=== PATIENT | male | born 1935 | race Caucasian/White ===

== ENCOUNTER 2017-05-07 11:10 | Inpatient (IN) | payer MEDICARE ==
[2017-05-07] VITALS (9 sets, daily range): BP systolic 134–170; BP diastolic 65–100
[~2017-05-07] VITALS: Ht 180 cm; Wt 93.1 kg
--- NOTE | ~2017-05-07 | CON ---
[place], [place] REPORT OF CONSULTATION NAME: MARLEY AGUILERA UNIT #: [id number] ROOM: 512 DOCTOR: ZULEYKA NIETO MD BIRTHDATE: [birth year] DOS: 05/07/2017 REASON FOR CONSULTATION: Atrial fibrillation. HISTORY OF PRESENT ILLNESS: The patient is an 81-year-old man who is typically followed by the [facility] [place], [place]. His primary media liaison officer there is Dr. Arteaga. He tells me that he has had several stents placed within his heart around [address] Tim Diaz. The patient states that he was told many years ago by Dr. Toussaint in [place] that he had an irregular heartbeat. This did not recur and the patient has not been treated for it in at least 20-30 years. Over the last 3 days, he has developed worsening dyspnea. Symptoms were intermittent, but became much more prominent this morning. His dyspnea was worsened by exertion. He denied any lightheadedness or syncope and denied any chest pain or palpitations, but felt weak and therefore came to the Emergency Room where he was found to be in atrial fibrillation with a controlled ventricular response. He was admitted for further assessment and management. PAST MEDICAL HISTORY: Includes: 1. Coronary artery disease. The patient states that he had at least 3 stents placed in his heart around 2004. 2. History of stroke. The patient states that he had a total of 3 strokes and/or transient ischemic attacks around the year 1999. He does not recall a cause being found. He has been treated with long-term aspirin and Plavix. 3. Gout. 4. Essential hypertension. 5. Gastroesophageal reflux disease. 6. Hyperlipidemia. 7. Type 2 diabetes mellitus. 8. History of left hip surgery. 9. Status post cataract resection. 10. Atrial fibrillation documented on 05/07/2017. MEDICATIONS: Prior to admission included allopurinol 300 mg daily, amlodipine 2.5 mg daily, aspirin 81 mg daily, clopidogrel 75 mg daily, folic acid 1 mg daily, glipizide 5 mg at bedtime, isosorbide mononitrate 60 mg daily, lisinopril with hydrochlorothiazide dosage not specified twice a day, metformin 1000 mg b.i.d., metoprolol 50 mg b.i.d., omeprazole 20 mg daily and paroxetine 20 mg at bedtime. ALLERGIES: The patient lists allergies to IVP DYE which causes a low blood pressure, DIPHENHYDRAMINE, which caused urinary retention; ALPRAZOLAM, LORAZEPAM, and MORPHINE. REVIEW OF SYSTEMS: The patient denies diplopia or loss of vision. He denies lightheadedness or syncope. Denies orthopnea or PND. He denies fevers, chills, sweats or recent weight change. He has had increased dyspnea and fatigue for the last few days. He denies orthopnea or PND. He denies nausea or vomiting. He denies hemoptysis or hematemesis. He has had a mild cough. He denies any [place], [place] REPORT OF CONSULTATION NAME: MARLEY AGUILERA UNIT #: [id number] ROOM: [facility] DOCTOR: ZULEYKA NIETO MD BIRTHDATE: [birth year] change in bowel or bladder habits and denies bleeding in his urine or stools. He denies any skin rashes. He denies heat or cold intolerance. He denies polydipsia or polyuria. He does have mild chronic swelling in his legs, but denies any cramping in his legs. The remainder of the review of systems is negative except as noted above. FAMILY HISTORY: The patient's father at age 54 from stomach cancer. His mother at age 81 from diabetes complications. SOCIAL HISTORY: The patient is a former smoker, but has not smoked in years. He rarely consumes alcohol and does not use illicit drugs. PHYSICAL EXAMINATION: GENERAL: The patient is a well-nourished white male who is awake, alert and oriented. VITAL SIGNS: Pulse is 72 and irregularly irregular. Blood pressure is 170/88. He is afebrile. He weighs 93.1 kg and has a body mass index of 28.7. HEENT: Normocephalic, atraumatic. Extraocular muscles are intact. Sclerae are clear. Pupils are round and reactive to light. Oral mucosa is moist. Tongue is midline. NECK: Supple. He has no jugular distention. Carotids are full. He has no bruits. He has no neck or supraclavicular masses. LUNGS: Respirations are unlabored. His chest is clear to auscultation and percussion. He has no presacral edema or chest wall tenderness. HEART: Has a an irregularly irregular rhythm. He has no murmurs, rubs or gallops. The PMI is not displaced. He has no precordial heave, lift or thrill. ABDOMEN: Soft and normoactive without masses, organomegaly or bruits. EXTREMITIES: Showed trace edema bilaterally. Peripheral pulses are palpable in the feet bilaterally. LABORATORY DATA: I reviewed his electrocardiogram, which shows atrial fibrillation with a slow ventricular response. He does have a right bundle branch block and left anterior fascicular block. No acute ST or T-wave changes are seen. Hemoglobin is 10.3, white count 8400, platelet count 203,000. INR is 1.0. Sodium is 144, potassium 4.2, BUN 21, creatinine 1.44. Lactic acid level on admission was 3.7. Troponin was normal. IMPRESSION: 1. Newly-documented atrial fibrillation. 2. History of coronary artery disease status post stents in the distant past. Records not available. 3. Remote history of stroke. 4. [id number] score 6 consistent with high risk for stroke without oral anticoagulation (yearly stroke risk approaches 10%). 5. History of hyperlipidemia. 6. History of type 2 diabetes mellitus. 7. History gastroesophageal reflux disease. [place], [place] REPORT OF CONSULTATION [id number] #: [id number] ROOM: 512 DOCTOR: ZULEYKA NIETO MD BIRTHDATE: [birth year] PLAN: The patient and I discussed the complications of atrial fibrillation, especially that of stroke. He has been placed on a heparin infusion, but we do need to decide on long-term anticoagulation strategies. The patient tells me that he does not have any drug coverage and is very low on funds. Warfarin would probably be the most economic choice for him and it has already been started at a dose of 5 mg per day. For now, his heart rate is controlled, so I do not think that we need to change his cardiac medications. We may need to give him a diuretic if he looks like he is developing heart failure. For now, we will monitor him clinically. We will check an echocardiogram for evidence of structural heart disease and a TSH for evidence of thyroid disease. I think we will follow strategy of rate control and anticoagulation for the foreseeable future. [facility] and I thank the hospitalist physicians for asking our advice regarding this patient's care. ZULEYKA NIETO MD CM:CONSTR:REPORT OF CONSULTATION 1647 05/07/17 2336 interface
--- NOTE | ~2017-05-07 | PR ---
[place], [place] PROGRESS NOTE NAME[id number] UNIT #: [id number] ROOM: 510 DOCTOR: ZULEYKA NIETO MD BIRTHDATE: [birth year] DOS: 05/08/2017 SUBJECTIVE: The patient was seen at his bedside today, 05/08/2017 for followup of his newly documented atrial fibrillation. The patient did have a rough night. There was considerable trouble with IV access and the patient apparently was stuck on numerous occasions in both arms. An antecubital vein on his right arm began oozing during the night and persisted in the oozing for several hours. At about that same time, he began to complain of anxiety, restlessness and dyspnea. There is no mention of any chest pain. Repeat cardiac biomarkers showed no elevation in troponin. He was given furosemide intravenously. Unfortunately, urine output was not measured. He was given methylprednisolone, diphenhydramine, hydroxyzine along with his usual dose of paroxetine at bedtime. This morning, he seems lethargic, but is able to answer questions. He is confused, but does not appear to have any focal weakness. After several hours, the oozing from his right antecubital vein has stopped. Review of his CBC shows that his hemoglobin actually sharona, probably due to diuresis and hemoconcentration, white count is 10,500. His platelet count is stable at 202,000, essentially eliminating heparin-induced thrombocytopenia or disseminated intravascular coagulation as a cause for his bleeding. PHYSICAL EXAMINATION: VITAL SIGNS: Now, his pulse is 77 and irregularly irregular, blood pressure is 143/79. He is afebrile. NECK: Supple. He has no jugular distention. Carotids are full. LUNGS: Respirations are unlabored. His chest is clear. I heard no wheezes or rales. He had no presacral edema. HEART: Had an irregularly irregular rhythm. There were no murmurs or gallops. The PMI was not displaced. ABDOMEN: Soft and normally active. EXTREMITIES: Showed no edema in the ankles. LABORATORY DATA: Hemoglobin was 11, hematocrit 34, white count 10,500, platelet count 202,000 this morning. Sodium this morning was 142, potassium 4.0, BUN 20, creatinine 1.38, sugar was 224. Hemoglobin A1c is mildly elevated at 6.7. Magnesium is low at 1.4. Troponin levels have all been normal. TSH is normal at 1.37. IMPRESSION: 1. Newly documented atrial fibrillation with controlled ventricular response, possibly due to underlying conduction system disorder or baseline medication with beta-hair. 2. Dyspnea and anxiety last evening, etiology not clear. 3. Confusion this morning, possibly due to combination of high dose steroids, Benadryl, Vistaril, etc. No focal weakness is noted on his exam today. 4. Extended bleeding from an arm vein. Most likely this is due to the fact that he was on antiplatelet therapies prior to admission and now is on full dose heparin. Bleeding has been controlled. PLAN: Once we are certain that his bleeding has been controlled, I would resume his heparin and warfarin protocol. I would withhold all antiplatelet therapies. [place], [place] PROGRESS NOTE NAME: MARLEY AGUILERA UNIT #: [id number] ROOM: [facility] DOCTOR: ZULEYKA NIETO MD BIRTHDATE: [birth year] For now, I would also withhold any sedating medications and follow his neurologic status clinically. A consideration could be given for CAT scan of the brain, especially since he has had bleeding difficulties; however, I do not see any focal weakness to suggest to me that he has had an intracranial hemorrhage. We will continue to follow with his other physicians and I thank the hospitalist doctors for asking our advice regarding his care. ZULEYKA NIETO MD CM:PNTRANS [phone] ZULEYKA NIETO MD 05/08/17 1838 interface
--- NOTE | ~2017-05-07 | PR ---
[place], [place] PROGRESS NOTE NAME: MARLEY AG[facility]ILERA [id number] UNIT #: [id number] ROOM: 510 DOCTOR: ZULEYKA NIETO MD BIRTHDATE: [birth year] DOS: 05/09/2017 SUBJECTIVE: The patient was seen at his bedside today, 05/09/2017 for followup of his recently documented atrial fibrillation. The night before last was a bad one for him. He had a lot of problems with IV access and had persistent bleeding from one of the IV sites. There was concern that this could be related to bleeding diathesis such as heparin-induced thrombocytopenia or disseminated intravascular coagulation. However, his blood tests were unremarkable and bleeding eventually did stop. He did receive hydroxyzine, Benadryl and steroids because of an episode of dyspnea and a concern about an allergic reaction. Yesterday morning, he was confused and disoriented; however, this apparently did improve and he is back to baseline today. A CAT scan of his head showed no evidence for acute bleeding or stroke. Today, the patient is feeling better. He denies any focal weakness. He denies chest pain or palpitations and is breathing easily. PHYSICAL EXAMINATION: VITAL SIGNS: His pulse is 83 and ____, blood pressure is 147/84. He is afebrile. He weighs 93.1 kilograms. HEENT: Normocephalic, atraumatic. Extraocular muscles are intact. Sclerae are clear. Pupils are round and react to light. The oral mucosa is moist. Tongue is midline. NECK: Supple. He has no jugular distention. Carotids are full. LUNGS: Respirations are unlabored. His chest is clear to auscultation and percussion. HEART: Has an irregularly irregular rhythm without murmurs or gallops. ABDOMEN: Benign. EXTREMITIES: Showed no edema. LABORATORY DATA: Hemoglobin today is 9.5, white count is 15,100, platelet count 212,000. Sodium 141, potassium 3.9, BUN 37, creatinine 1.49. IMPRESSION: 1. Newly documented atrial fibrillation. 2. Confusion on the morning of 05/08/2017, probably due to a combination of high dose steroids, Benadryl, hydroxyzine, sleep deprivation, etc. This appears to have improved. 3. Extended bleeding from an arm vein puncture. This most likely was due to the fact that he was on antiplatelet therapies recently and was now on full dose heparin. His bleeding has been controlled. PLAN: We will continue heparin drip until his INR becomes therapeutic. Today, the INR is 1.5. Our target is between 2 and 3. Echocardiogram is still pending that will be reviewed when available. I thank the hospitalist group for asking our advice regarding his care. [place], [place] PROGRESS NOTE NAME: ALEMARLEY Barbosa UNIT #: [id number] ROOM: [facility] DOCTOR: ZULEYKA NIETO MD BIRTHDATE: [birth year] ZULEYKA NIETO MD CM:PNTRANS [id number] ZULEYKA NIETO MD 05/09/17 1321 interface
[~2017-05-07 11:10] MED LIST: ALLOPURINOL300 MG PO; AMLODIPINE BES2.5 MG PO; AMLODIPINE10 MG PO; APAP/HYDROCODON1 T46 PO; ASPIRIN FOR CHI81 MG PO; AUGMENTIN 875875 MG PO; B12,B-12,B 12500 MC1 PO; BAYER ASPIRIN C81 MG PO; CIPRO500 MG PO; CRESTOR10 MG PO; CRESTOR5 MG PO; GLIPIZIDE1 POW PO; GLIPIZIDE10 MG PO; HUMALOG100 U/ML SC; IMDUR60 MG PO; ISOSORBIDE1 POW; LISINOPRIL AND1 TAB PO; MAPAP325 MG PO; METFORMIN1000 MG PO; METFORMIN500 MG PO; PAROXETIN10 MG PO; PAROXETINE20 MG PO; PLAVIX75 MG PO; PRILOSEC40 MG PO; TOPROL XL50 MG PO; TOPROL-XL50 MG PO; ZESTORETIC 12.51 TA3 PO; ZESTRIL30 M1 PO; ZYLOPRIM300 MG PO
[2017-05-07] MEDS ORDERED: PLAVIX75 M1 PO (11:21)
[2017-05-07] MEDS ORDERED: SUNMARK OMEPRAZ20 M1 PO (11:22)
[2017-05-07] MEDS ORDERED: NATURE'S BLEND F1 MG PO (11:22)
[2017-05-07 11:59] LABS: BASO % 0.5 % (0.0-1.0); EOS # 0.1 10*3/uL (0.0-0.4); EOS % 1.4 % (1.0-4.0); HEMOGLOBIN 10.3 g/dl (14.0-18.0); LYMPH # 1.1 10*3/uL (1.3-4.4); LYMPH % 12.7 % (27.0-41.0); MEAN CELL VOLUME 95.8 fl (80.0-94.0); MEAN CORPUSCULAR HGB 30.8 pg (27.0-31.0); MEAN CORPUSCULAR HGB CONC 32.2 g/dl (33.0-37.0); MEAN PLATELET VOLUME 9.8 fl (9.6-12.3); MONO # 0.6 10*3/uL (0.1-1.0); MONO % 6.5 % (3.0-9.0); NEUT # 6.6 10*3/uL (2.3-7.9); NEUT % 78.7 % (47.0-73.0); PLATELET COUNT AUTOMATED 203 10*3/uL (130-400); RED BLOOD COUNT 3.34 10*6/uL (4.50-5.90); WHITE BLOOD COUNT 8.4 10*3/uL (4.8-10.8)
[2017-05-07 12:06] LABS: PROTHROMBIN TIME 10.3 SECONDS (9.0-12.4)
[2017-05-07 12:13] LABS: ALBUMIN 3.1 gm/dl (3.1-4.5); BILIRUBIN, TOTAL 0.5 mg/dl (0.2-1.0); CKMB 1.4 ng/ml (0.5-3.6); MAGNESIUM 1.6 mg/dL (1.5-2.1); POTASSIUM 4.2 mmol/L (3.5-5.1); TOTAL PROTEIN 6.8 gm/dL (6.4-8.2); TROPONIN I 0.016 ng/ml (<0.045)
[2017-05-07 13:54] LABS: LA>2 REFLEX 2 HR DRAW NOW
[2017-05-07 14:24] LABS: LA>2 RFLX FOLLOW UP AT 2 HRS 3.7 mmol/L (0.4-2.0)
[2017-05-07] MEDS ORDERED: GLIPIZIDE5 MG PO (14:32)
[2017-05-07] MEDS ORDERED: METOPROLOL SUCC50 M2 PO (14:33)
[2017-05-07] MEDS ORDERED: LISINOPRIL-HYDR1 TA1 PO (14:34)
[2017-05-07] MEDS ORDERED: METOPROLOL TART50 M1 PO (14:34)
[2017-05-07 14:36] LABS: CKMB 1.4 ng/ml (0.5-3.6); CPK 68 U/L (39-308)
[2017-05-07 14:39] LABS: TROPONIN I < 0.015 ng/ml (<0.045)
[2017-05-07 16:14] LABS: LA>2 REFLEX 4 HR DRAW NOW
[2017-05-07 18:18] LABS: CKMB 1.5 ng/ml (0.5-3.6); CPK 69 U/L (39-308)
[2017-05-07 18:19] LABS: TROPONIN I < 0.015 ng/ml (<0.045)
[2017-05-08] VITALS: BP 153/73
[2017-05-08 04:00] VITALS: BP 143/79
[2017-05-08 05:50] LABS: FREE T4 1.22 ng/dl (0.76-1.46); MAGNESIUM 1.4 mg/dL (1.5-2.1); PHOSPHOROUS 2.5 mg/dL (2.5-4.9)
[2017-05-08 05:56] LABS: THYROID STIM HORMONE (HS) 1.37 uIU/ml (0.358-4.75)
[2017-05-08 05:58] LABS: HEMOGLOBIN A1c 6.7 % (4.8-5.6)
[2017-05-08 06:19] LABS: MEAN CORPUSCULAR HGB 30.7 pg (27.0-31.0); MEAN CORPUSCULAR HGB CONC 32.4 g/dl (33.0-37.0); MEAN PLATELET VOLUME 10.3 fl (9.6-12.3); PLATELET COUNT AUTOMATED 202 10*3/uL (130-400); RED BLOOD COUNT 3.58 10*6/uL (4.50-5.90); RED CELL DISTRI WIDTH 14.6 % (0-14.5); WHITE BLOOD COUNT 10.5 10*3/uL (4.8-10.8)
[2017-05-08 06:25] LABS: PROTHROMBIN TIME 11.1 SECONDS (9.0-12.4)
[2017-05-08 07:14] LABS: LYMPHOCYTE # 0.2 10*3/uL (1.3-4.4); MONOCYTE # 0.2 10*3/uL (0.1-1.0); NEUTROPHIL # 10.1 10*3/uL (2.3-7.9); NEUTROPHILS 96 % (47-73); TOTAL CELLS COUNTED 100 #CELLS
[2017-05-08 07:15] LABS: PLATELET SUFFICIENCY NORMAL (NORMAL)
[2017-05-08 07:23] LABS: VITAMIN D, 25-HYDROXY 8.2 ng/mL (30-100)
[2017-05-08 07:28] LABS: FOLIC ACID > 24.00 ng/mL (>5.38)
[2017-05-08 08:00] VITALS: BP 153/83
[2017-05-08 12:00] VITALS: BP 154/84
[2017-05-08 13:08] LABS: HEMATOCRIT 32.9 % (42.0-52.0); HEMOGLOBIN 10.8 g/dl (14.0-18.0)
[2017-05-08 16:00] VITALS: BP 115/76
[2017-05-08 20:00] VITALS: BP 133/68
[2017-05-09] VITALS: BP 138/66
[2017-05-09 05:59] LABS: BASO % 0.1 % (0.0-1.0); HEMATOCRIT 29.4 % (42.0-52.0); HEMOGLOBIN 9.5 g/dl (14.0-18.0); IG # 0.1 10*3/uL (0.0-0.1); LYMPH # 0.7 10*3/uL (1.3-4.4); LYMPH % 4.9 % (27.0-41.0); MEAN CELL VOLUME 94.2 fl (80.0-94.0); MEAN CORPUSCULAR HGB 30.4 pg (27.0-31.0); MEAN CORPUSCULAR HGB CONC 32.3 g/dl (33.0-37.0); MEAN PLATELET VOLUME 10.4 fl (9.6-12.3); MONO # 0.8 10*3/uL (0.1-1.0); MONO % 5.4 % (3.0-9.0); NEUT # 13.5 10*3/uL (2.3-7.9); PLATELET COUNT AUTOMATED 212 10*3/uL (130-400); RED BLOOD COUNT 3.12 10*6/uL (4.50-5.90); RED CELL DISTRI WIDTH 14.7 % (0-14.5); WHITE BLOOD COUNT 15.1 10*3/uL (4.8-10.8)
[2017-05-09 06:34] LABS: INTERNATIONAL NORM RATIO 1.5 (2.0-3.5); PROTHROMBIN TIME 16.8 SECONDS (9.0-12.4)
[2017-05-09 06:42] LABS: POTASSIUM 3.9 mmol/L (3.5-5.1)
[2017-05-09 08:00] VITALS: BP 147/84
[2017-05-09 12:00] VITALS: BP 132/75
[2017-05-09 16:00] VITALS: BP 136/74
[2017-05-09 20:00] VITALS: BP 131/67
[2017-05-10] VITALS: BP 98/52
[2017-05-10 06:19] LABS: BASO % 0.2 % (0.0-1.0); EOS # 0.1 10*3/uL (0.0-0.4); EOS % 0.8 % (1.0-4.0); HEMATOCRIT 32.2 % (42.0-52.0); HEMOGLOBIN 10.1 g/dl (14.0-18.0); LYMPH # 1.7 10*3/uL (1.3-4.4); MEAN CELL VOLUME 96.4 fl (80.0-94.0); MEAN CORPUSCULAR HGB 30.2 pg (27.0-31.0); MEAN CORPUSCULAR HGB CONC 31.4 g/dl (33.0-37.0); MEAN PLATELET VOLUME 10.3 fl (9.6-12.3); MONO # 0.6 10*3/uL (0.1-1.0); MONO % 6.5 % (3.0-9.0); NEUT # 7.3 10*3/uL (2.3-7.9); NEUT % 75.2 % (47.0-73.0); PLATELET COUNT AUTOMATED 203 10*3/uL (130-400); RED BLOOD COUNT 3.34 10*6/uL (4.50-5.90); RED CELL DISTRI WIDTH 14.9 % (0-14.5); WHITE BLOOD COUNT 9.7 10*3/uL (4.8-10.8)
[2017-05-10 06:32] LABS: POTASSIUM 3.8 mmol/L (3.5-5.1)
[2017-05-10 06:51] LABS: INTERNATIONAL NORM RATIO 2.3 (2.0-3.5); PROTHROMBIN TIME 25.6 SECONDS (9.0-12.4)
[2017-05-10 08:00] VITALS: BP 132/70
[2017-05-10 12:00] VITALS: BP 131/70
[2017-05-10] MEDS ORDERED: DUONEB 3 MG/3 ML3 M1 NEB (14:01)
[2017-05-10] MEDS ORDERED: COUMADIN5 M2 PO (14:01)
== END 2017-05-10 16:12 | disposition other institution (70) | DRG 308 ==
LOC: ED 11:10 → 5E 13:10 → EDHOLD 13:10 → 5E 13:23
PROVIDERS: Hospitalist; Internal Medicine; Internal Medicine Hospice and Palliative Medicine; Physician Assistant
PROC: 02HV33Z Insertion of Infusion Device into Superior Vena Cava, Percutaneous Approach (ICD-10-PCS; principal; 2017-05-08)
DX: I48.91 Unspecified atrial fibrillation (principal); N17.0 Acute kidney failure with tubular necrosis; E87.2 Acidosis; E11.65 Type 2 diabetes mellitus with hyperglycemia; E86.0 Dehydration; I25.10 Atherosclerotic heart disease of native coronary artery without angina pectoris; F32.9 Major depressive disorder, single episode, unspecified; I10 Essential (primary) hypertension; K44.9 Diaphragmatic hernia without obstruction or gangrene; K27.9 Peptic ulcer, site unspecified, unspecified as acute or chronic, without hemorrhage or perforation; M1A.9XX0 Chronic gout, unspecified, without tophus (tophi); E78.00 Pure hypercholesterolemia, unspecified; D53.9 Nutritional anemia, unspecified; T38.0X5A Adverse effect of glucocorticoids and synthetic analogues, initial encounter; F41.9 Anxiety disorder, unspecified; E78.5 Hyperlipidemia, unspecified; K21.9 Gastro-esophageal reflux disease without esophagitis; Z86.73 Personal history of transient ischemic attack (TIA), and cerebral infarction without residual deficits; Z95.5 Presence of coronary angioplasty implant and graft; Z95.9 Presence of cardiac and vascular implant and graft, unspecified; Z98.42 Cataract extraction status, left eye; Z98.41 Cataract extraction status, right eye; Z87.891 Personal history of nicotine dependence; Z80.0 Family history of malignant neoplasm of digestive organs; Y92.89 Other specified places as the place of occurrence of the external cause; Z83.3 Family history of diabetes mellitus; Z88.8 Allergy status to other drugs, medicaments and biological substances; Z88.6 Allergy status to analgesic agent; Z91.041 Radiographic dye allergy status; Z79.82 Long term (current) use of aspirin; Z79.84 Long term (current) use of oral hypoglycemic drugs; Z79.899 Other long term (current) drug therapy; Z79.01 Long term (current) use of anticoagulants; Z79.4 Long term (current) use of insulin

== ENCOUNTER 2017-05-17 14:49 | Inpatient (IN) | payer MEDICARE ==
[~2017-05-17] VITALS: Ht 180.3 cm; Wt 96.2 kg
[~2017-05-17 14:49] MED LIST changes: +COUMADIN5 M2 PO; +DUONEB 3 MG/3 ML3 M1 NEB; +GLIPIZIDE5 MG PO; +LISINOPRIL-HYDR1 TA1 PO; +METOPROLOL SUCC50 M2 PO; +METOPROLOL TART50 M1 PO; +NATURE'S BLEND F1 MG PO; +PLAVIX75 M1 PO; +SUNMARK OMEPRAZ20 M1 PO
[2017-05-17 14:58] VITALS: BP 111/59
[2017-05-17] MEDS ORDERED: ZOFRAN8 M1 PO (15:22)
[2017-05-17] MEDS ORDERED: COUMADIN4 M2 PO (15:23)
[2017-05-17] MEDS ORDERED: VITAMIN D1000 IU PO (15:23)
[2017-05-17] MEDS ORDERED: DUONEB 3 MG/3 ML3 M1 INH (15:24)
[2017-05-17] MEDS ORDERED: FLOMAX0.4 MG PO (15:24)
[2017-05-17] MEDS ORDERED: TYLENOL325 M1 PO (15:25)
[2017-05-17] MEDS ORDERED: PRILOSEC20 M1 PO (15:25)
[2017-05-17] MEDS ORDERED: NATURE'S BLEND F1 MG PO (15:25)
[2017-05-17] MEDS ORDERED: GLUCOTROL5 MG PO (15:25)
[2017-05-17] MEDS ORDERED: IMDUR SA60 M1 PO (15:26)
[2017-05-17 15:33] LABS: BASO % 0.2 % (0.0-1.0); EOS % 0.4 % (1.0-4.0); HEMATOCRIT 26.5 % (42.0-52.0); HEMOGLOBIN 8.4 g/dl (14.0-18.0); IG # 0.1 10*3/uL (0.0-0.1); LYMPH # 0.5 10*3/uL (1.3-4.4); LYMPH % 5.3 % (27.0-41.0); MEAN CELL VOLUME 97.1 fl (80.0-94.0); MEAN CORPUSCULAR HGB 30.8 pg (27.0-31.0); MEAN CORPUSCULAR HGB CONC 31.7 g/dl (33.0-37.0); MEAN PLATELET VOLUME 9.6 fl (9.6-12.3); MONO # 0.6 10*3/uL (0.1-1.0); MONO % 6.1 % (3.0-9.0); NEUT # 8.4 10*3/uL (2.3-7.9); NEUT % 87.4 % (47.0-73.0); PLATELET COUNT AUTOMATED 191 10*3/uL (130-400); RED BLOOD COUNT 2.73 10*6/uL (4.50-5.90); RED CELL DISTRI WIDTH 14.8 % (0-14.5); WHITE BLOOD COUNT 9.6 10*3/uL (4.8-10.8)
[2017-05-17 15:41] LABS: INTERNATIONAL NORM RATIO 2.9 (2.0-3.5); PROTHROMBIN TIME 32.8 SECONDS (9.0-12.4)
[2017-05-17 15:48] LABS: ALBUMIN 2.8 gm/dl (3.1-4.5); BILIRUBIN, TOTAL 0.5 mg/dl (0.2-1.0); CKMB 1.3 ng/ml (0.5-3.6); MAGNESIUM 1.7 mg/dL (1.5-2.1); POTASSIUM 3.9 mmol/L (3.5-5.1); TOTAL PROTEIN 6.1 gm/dL (6.4-8.2); TROPONIN I 0.017 ng/ml (<0.045)
[2017-05-17 16:24] VITALS: BP 104/60
[2017-05-17 17:30] LABS: LA>2 REFLEX 2 HR DRAW NOW
[2017-05-17 17:49] LABS: LA>2 RFLX FOLLOW UP AT 2 HRS 2.2 mmol/L (0.4-2.0)
[2017-05-17] MEDS ORDERED: ALLOPURINOL100 MG PO (19:26)
[2017-05-17] MEDS ORDERED: PAXIL20 M1 PO (19:28)
[2017-05-17 19:39] LABS: LA>2 REFLEX 4 HR DRAW NOW
[2017-05-17 20:00] VITALS: BP 154/71
[2017-05-18] VITALS: BP 102/64
[2017-05-18 06:26] LABS: BASO % 0.2 % (0.0-1.0); EOS % 0.4 % (1.0-4.0); HEMATOCRIT 27.7 % (42.0-52.0); HEMOGLOBIN 8.5 g/dl (14.0-18.0); IG # 0.1 10*3/uL (0.0-0.1); LYMPH # 0.5 10*3/uL (1.3-4.4); LYMPH % 5.1 % (27.0-41.0); MEAN CELL VOLUME 98.2 fl (80.0-94.0); MEAN CORPUSCULAR HGB 30.1 pg (27.0-31.0); MEAN CORPUSCULAR HGB CONC 30.7 g/dl (33.0-37.0); MEAN PLATELET VOLUME 10.3 fl (9.6-12.3); MONO # 0.6 10*3/uL (0.1-1.0); NEUT # 8.8 10*3/uL (2.3-7.9); NEUT % 87.7 % (47.0-73.0); PLATELET COUNT AUTOMATED 177 10*3/uL (130-400); RED BLOOD COUNT 2.82 10*6/uL (4.50-5.90); RED CELL DISTRI WIDTH 14.9 % (0-14.5)
[2017-05-18 06:34] LABS: INTERNATIONAL NORM RATIO 2.4 (2.0-3.5); PROTHROMBIN TIME 26.8 SECONDS (9.0-12.4)
[2017-05-18 06:38] LABS: MAGNESIUM 1.8 mg/dL (1.5-2.1); PHOSPHOROUS 3.3 mg/dL (2.5-4.9); POTASSIUM 3.4 mmol/L (3.5-5.1)
[2017-05-18 08:00] VITALS: BP 107/40
[2017-05-18 12:00] VITALS: BP 138/73
[2017-05-18 16:00] VITALS: BP 125/86
[2017-05-18 19:40] LABS: BASO % 0.3 % (0.0-1.0); EOS % 0.4 % (1.0-4.0); HEMATOCRIT 27.6 % (42.0-52.0); HEMOGLOBIN 8.5 g/dl (14.0-18.0); IG # 0.1 10*3/uL (0.0-0.1); LYMPH # 0.5 10*3/uL (1.3-4.4); LYMPH % 5.1 % (27.0-41.0); MEAN CELL VOLUME 98.2 fl (80.0-94.0); MEAN CORPUSCULAR HGB 30.2 pg (27.0-31.0); MEAN CORPUSCULAR HGB CONC 30.8 g/dl (33.0-37.0); MEAN PLATELET VOLUME 9.6 fl (9.6-12.3); MONO # 0.6 10*3/uL (0.1-1.0); MONO % 5.6 % (3.0-9.0); NEUT % 87.9 % (47.0-73.0); PLATELET COUNT AUTOMATED 184 10*3/uL (130-400); RED BLOOD COUNT 2.81 10*6/uL (4.50-5.90); WHITE BLOOD COUNT 10.2 10*3/uL (4.8-10.8)
[2017-05-18 19:59] LABS: ALBUMIN 2.8 gm/dl (3.1-4.5); BILIRUBIN, TOTAL 0.5 mg/dl (0.2-1.0); POTASSIUM 4.3 mmol/L (3.5-5.1); TOTAL PROTEIN 6.3 gm/dL (6.4-8.2)
[2017-05-18 20:00] VITALS: BP 126/69
[2017-05-18 20:01] LABS: TROPONIN I 0.095 ng/ml (<0.045)
[2017-05-19] VITALS: BP 128/72
[2017-05-19 00:45] LABS: BILIRUBIN 2+ (NEGATIVE); BLOOD TRACE-INTACT (NEGATIVE); CLARITY CLOUDY (CLEAR); COLOR YELLOW (YELLOW); GLUCOSE NEGATIVE (NEGATIVE); KETONE NEGATIVE (NEGATIVE); LEUKO ESTERASE 1+ (NEGATIVE); NITRITE NEGATIVE (NEGATIVE); PROTEIN 2+ (NEGATIVE); SPECIFIC GRAVITY >= 1.030 (1.005-1.030)
[2017-05-19 01:02] LABS: RBC TNTC rbc/hpf (0-2)
[2017-05-19 01:03] LABS: BACTERIA 4+; URINE REFLEX COMMENT YES (NO); WBC TNTC wbc/hpf (0-5)
[2017-05-19 06:22] LABS: BASO % 0.2 % (0.0-1.0); EOS # 0.1 10*3/uL (0.0-0.4); EOS % 1.2 % (1.0-4.0); HEMATOCRIT 28.6 % (42.0-52.0); HEMOGLOBIN 8.9 g/dl (14.0-18.0); LYMPH # 0.9 10*3/uL (1.3-4.4); LYMPH % 9.8 % (27.0-41.0); MEAN CORPUSCULAR HGB 30.8 pg (27.0-31.0); MEAN CORPUSCULAR HGB CONC 31.1 g/dl (33.0-37.0); MEAN PLATELET VOLUME 10.2 fl (9.6-12.3); MONO # 0.6 10*3/uL (0.1-1.0); MONO % 6.3 % (3.0-9.0); NEUT # 7.9 10*3/uL (2.3-7.9); NEUT % 82.3 % (47.0-73.0); PLATELET COUNT AUTOMATED 209 10*3/uL (130-400); RED BLOOD COUNT 2.89 10*6/uL (4.50-5.90); RED CELL DISTRI WIDTH 15.2 % (0-14.5); WHITE BLOOD COUNT 9.6 10*3/uL (4.8-10.8)
[2017-05-19 06:40] LABS: POTASSIUM 4.5 mmol/L (3.5-5.1)
[2017-05-19 06:46] LABS: INTERNATIONAL NORM RATIO 2.3 (2.0-3.5); PROTHROMBIN TIME 25.4 SECONDS (9.0-12.4)
[2017-05-19 08:00] VITALS: BP 137/94
[2017-05-19 16:00] VITALS: BP 138/76
[2017-05-19 20:00] VITALS: BP 131/81
[2017-05-20] VITALS: BP 137/85
[2017-05-20 05:58] LABS: POTASSIUM 4.3 mmol/L (3.5-5.1)
[2017-05-20 06:01] LABS: BASO % 0.2 % (0.0-1.0); EOS # 0.1 10*3/uL (0.0-0.4); EOS % 0.5 % (1.0-4.0); HEMATOCRIT 28.8 % (42.0-52.0); HEMOGLOBIN 8.8 g/dl (14.0-18.0); LYMPH # 0.7 10*3/uL (1.3-4.4); LYMPH % 7.7 % (27.0-41.0); MEAN CELL VOLUME 99.3 fl (80.0-94.0); MEAN CORPUSCULAR HGB 30.3 pg (27.0-31.0); MEAN CORPUSCULAR HGB CONC 30.6 g/dl (33.0-37.0); MEAN PLATELET VOLUME 10.3 fl (9.6-12.3); MONO # 0.5 10*3/uL (0.1-1.0); MONO % 5.8 % (3.0-9.0); NEUT # 7.8 10*3/uL (2.3-7.9); NEUT % 85.4 % (47.0-73.0); PLATELET COUNT AUTOMATED 234 10*3/uL (130-400); RED CELL DISTRI WIDTH 14.9 % (0-14.5); WHITE BLOOD COUNT 9.1 10*3/uL (4.8-10.8)
[2017-05-20 06:24] LABS: INTERNATIONAL NORM RATIO 2.8 (2.0-3.5); PROTHROMBIN TIME 31.9 SECONDS (9.0-12.4)
[2017-05-20 08:00] VITALS: BP 139/81
[2017-05-20 12:00] VITALS: BP 136/86
[2017-05-20 16:00] VITALS: BP 137/74
[2017-05-20 20:00] VITALS: BP 149/74
[2017-05-21] VITALS: BP 154/82
[2017-05-21 06:27] LABS: BASO % 0.3 % (0.0-1.0); EOS # 0.1 10*3/uL (0.0-0.4); EOS % 1.3 % (1.0-4.0); HEMATOCRIT 26.4 % (42.0-52.0); HEMOGLOBIN 8.1 g/dl (14.0-18.0); LYMPH # 0.8 10*3/uL (1.3-4.4); LYMPH % 10.8 % (27.0-41.0); MEAN CELL VOLUME 98.5 fl (80.0-94.0); MEAN CORPUSCULAR HGB 30.2 pg (27.0-31.0); MEAN CORPUSCULAR HGB CONC 30.7 g/dl (33.0-37.0); MONO # 0.5 10*3/uL (0.1-1.0); MONO % 7.3 % (3.0-9.0); NEUT # 5.6 10*3/uL (2.3-7.9); NEUT % 79.9 % (47.0-73.0); NUCLEATED RED BLOOD CELL 0.3 % (0.0-0.0); PLATELET COUNT AUTOMATED 204 10*3/uL (130-400); RED BLOOD COUNT 2.68 10*6/uL (4.50-5.90); RED CELL DISTRI WIDTH 14.9 % (0-14.5)
[2017-05-21 06:57] LABS: ALBUMIN 2.7 gm/dl (3.1-4.5); BILIRUBIN, TOTAL 0.3 mg/dl (0.2-1.0); MAGNESIUM 1.5 mg/dL (1.5-2.1); POTASSIUM 4.4 mmol/L (3.5-5.1); TOTAL PROTEIN 6.3 gm/dL (6.4-8.2)
[2017-05-21 07:00] LABS: INTERNATIONAL NORM RATIO 3.3 (2.0-3.5); PROTHROMBIN TIME 38.3 SECONDS (9.0-12.4)
[2017-05-21 08:00] VITALS: BP 154/88
[2017-05-21 12:00] VITALS: BP 154/65
[2017-05-21 16:00] VITALS: BP 140/60
[2017-05-21 20:00] VITALS: BP 152/68
[2017-05-22] VITALS: BP 152/80
[2017-05-22 06:29] LABS: BASO % 0.4 % (0.0-1.0); EOS # 0.1 10*3/uL (0.0-0.4); EOS % 1.6 % (1.0-4.0); HEMATOCRIT 27.7 % (42.0-52.0); HEMOGLOBIN 8.4 g/dl (14.0-18.0); LYMPH # 0.9 10*3/uL (1.3-4.4); LYMPH % 12.3 % (27.0-41.0); MEAN CELL VOLUME 98.6 fl (80.0-94.0); MEAN CORPUSCULAR HGB 29.9 pg (27.0-31.0); MEAN CORPUSCULAR HGB CONC 30.3 g/dl (33.0-37.0); MEAN PLATELET VOLUME 9.3 fl (9.6-12.3); MONO # 0.5 10*3/uL (0.1-1.0); MONO % 6.1 % (3.0-9.0); NEUT % 79.2 % (47.0-73.0); PLATELET COUNT AUTOMATED 221 10*3/uL (130-400); RED BLOOD COUNT 2.81 10*6/uL (4.50-5.90); RED CELL DISTRI WIDTH 14.7 % (0-14.5); WHITE BLOOD COUNT 7.5 10*3/uL (4.8-10.8)
[2017-05-22 06:52] LABS: ALBUMIN 2.9 gm/dl (3.1-4.5); BILIRUBIN, TOTAL 0.3 mg/dl (0.2-1.0); POTASSIUM 4.2 mmol/L (3.5-5.1); TOTAL PROTEIN 6.6 gm/dL (6.4-8.2)
[2017-05-22 06:55] LABS: INTERNATIONAL NORM RATIO 3.5 (2.0-3.5); PROTHROMBIN TIME 40.3 SECONDS (9.0-12.4)
[2017-05-22 08:00] VITALS: BP 150/84
[2017-05-22 12:00] VITALS: BP 143/79
[2017-05-22 16:00] VITALS: BP 99/58
[2017-05-22 18:11] LABS: BILIRUBIN NEGATIVE (NEGATIVE); BLOOD TRACE-INTACT (NEGATIVE); CLARITY SL CLOUDY (CLEAR); COLOR YELLOW (YELLOW); GLUCOSE TRACE (NEGATIVE); KETONE NEGATIVE (NEGATIVE); LEUKO ESTERASE 1+ (NEGATIVE); NITRITE NEGATIVE (NEGATIVE); PH 5.5 (5.0-9.0); PROTEIN 1+ (NEGATIVE); SPECIFIC GRAVITY >= 1.030 (1.005-1.030); UROBILINOGEN 0.2 E.U./dl (0.2-1.0)
[2017-05-22 18:15] LABS: BACTERIA 2+; URINE REFLEX COMMENT YES (NO); WBC TNTC wbc/hpf (0-5)
[2017-05-22 20:00] VITALS: BP 126/79
[2017-05-23] VITALS: BP 132/110; BP 143/90
[2017-05-23 01:24] VITALS: BP 142/82
[2017-05-23 01:52] VITALS: BP 140/72
[2017-05-23 04:00] VITALS: BP 148/81
[2017-05-23 06:09] LABS: BASO % 0.5 % (0.0-1.0); EOS # 0.2 10*3/uL (0.0-0.4); HEMATOCRIT 29.2 % (42.0-52.0); HEMOGLOBIN 8.8 g/dl (14.0-18.0); LYMPH # 0.9 10*3/uL (1.3-4.4); LYMPH % 11.1 % (27.0-41.0); MEAN CELL VOLUME 98.6 fl (80.0-94.0); MEAN CORPUSCULAR HGB 29.7 pg (27.0-31.0); MEAN CORPUSCULAR HGB CONC 30.1 g/dl (33.0-37.0); MEAN PLATELET VOLUME 10.1 fl (9.6-12.3); MONO # 0.5 10*3/uL (0.1-1.0); MONO % 6.7 % (3.0-9.0); NEUT # 6.3 10*3/uL (2.3-7.9); NEUT % 79.3 % (47.0-73.0); PLATELET COUNT AUTOMATED 240 10*3/uL (130-400); RED BLOOD COUNT 2.96 10*6/uL (4.50-5.90); RED CELL DISTRI WIDTH 14.5 % (0-14.5); WHITE BLOOD COUNT 7.9 10*3/uL (4.8-10.8)
[2017-05-23 06:43] LABS: INTERNATIONAL NORM RATIO 3.3 (2.0-3.5)
[2017-05-23 06:46] LABS: ALBUMIN 2.9 gm/dl (3.1-4.5); ALKALINE PHOSPHATASE 141 U/L (45-117); BILIRUBIN, TOTAL 0.3 mg/dl (0.2-1.0); BUN 19 mg/dl (7-24); CARBON DIOXIDE 27 mmol/L (21-32); CHLORIDE 109 mmol/L (98-107); EST GLOM FILT AFRICAN AMERICAN > 60 ml/min; GLUCOSE 185 mg/dL (65-99); MAGNESIUM 1.6 mg/dL (1.5-2.1); POTASSIUM 4.2 mmol/L (3.5-5.1); SGOT/AST 12 IU/L (3-35); SGPT/ALT 31 U/L (12-78); SODIUM 143 mmol/L (136-145); TOTAL PROTEIN 6.5 gm/dL (6.4-8.2)
[2017-05-23 08:00] VITALS: BP 144/70
[2017-05-23] MEDS ORDERED: COUMADIN3 M1 PO (10:43)
[2017-05-23] MEDS ORDERED: METOPROLOL TART50 M1 PO (10:43)
[2017-05-23 12:00] VITALS: BP 130/74
== END 2017-05-23 14:06 | disposition other institution (70) | DRG 871 ==
LOC: ED 14:49 → EDHOLD 17:48 → 5E 17:48
PROVIDERS: Emergency Medicine; Family Medicine; Hospitalist; Internal Medicine; Physician Assistant; Student in an Organized Health Care Education/Training Program
DX: A41.9 Sepsis, unspecified organism (principal); N17.0 Acute kidney failure with tubular necrosis; I21.4 Non-ST elevation (NSTEMI) myocardial infarction; I48.2 Chronic atrial fibrillation; E11.65 Type 2 diabetes mellitus with hyperglycemia; E44.0 Moderate protein-calorie malnutrition; K27.9 Peptic ulcer, site unspecified, unspecified as acute or chronic, without hemorrhage or perforation; F32.9 Major depressive disorder, single episode, unspecified; I12.9 Hypertensive chronic kidney disease with stage 1 through stage 4 chronic kidney disease, or unspecified chronic kidney disease; R65.20 Severe sepsis without septic shock; E86.0 Dehydration; D53.9 Nutritional anemia, unspecified; I25.10 Atherosclerotic heart disease of native coronary artery without angina pectoris; K21.9 Gastro-esophageal reflux disease without esophagitis; K44.9 Diaphragmatic hernia without obstruction or gangrene; E87.6 Hypokalemia; M10.9 Gout, unspecified; E78.00 Pure hypercholesterolemia, unspecified; Z95.818 Presence of other cardiac implants and grafts; Z68.29 Body mass index [BMI] 29.0-29.9, adult; Z88.5 Allergy status to narcotic agent; Z88.8 Allergy status to other drugs, medicaments and biological substances; Z91.041 Radiographic dye allergy status; Z98.42 Cataract extraction status, left eye; Z86.73 Personal history of transient ischemic attack (TIA), and cerebral infarction without residual deficits; Z98.41 Cataract extraction status, right eye; Z87.891 Personal history of nicotine dependence; Z80.0 Family history of malignant neoplasm of digestive organs; Z83.3 Family history of diabetes mellitus; Z79.899 Other long term (current) drug therapy; Z79.01 Long term (current) use of anticoagulants; K57.90 Diverticulosis of intestine, part unspecified, without perforation or abscess without bleeding; N18.9 Chronic kidney disease, unspecified

== ENCOUNTER 2017-09-03 16:55 | Inpatient (IN) | payer MEDICARE ==
[~2017-09-03] VITALS: Ht 180.3 cm; Wt 90.7 kg
[~2017-09-03 16:55] MED LIST changes: +ALLOPURINOL100 MG PO; +COUMADIN3 M1 PO; +COUMADIN4 M2 PO; +DUONEB 3 MG/3 ML3 M1 INH; +FLOMAX0.4 MG PO; +GLUCOTROL XL2.5 MG PO; +IMDUR SA60 M1 PO; +PAXIL20 M1 PO; +PRILOSEC20 M1 PO; +TYLENOL325 M1 PO; +VITAMIN D1000 IU PO; +ZOFRAN8 M1 PO
[2017-09-03 17:01] VITALS: BP 149/59
[2017-09-03 17:31] LABS: BASO % 0.6 % (0.0-1.0); EOS # 0.3 10*3/uL (0.0-0.4); EOS % 3.6 % (1.0-4.0); HEMATOCRIT 30.4 % (42.0-52.0); HEMOGLOBIN 9.6 g/dl (14.0-18.0); LYMPH # 0.7 10*3/uL (1.3-4.4); LYMPH % 9.2 % (27.0-41.0); MEAN CELL VOLUME 87.9 fl (80.0-94.0); MEAN CORPUSCULAR HGB 27.7 pg (27.0-31.0); MEAN CORPUSCULAR HGB CONC 31.6 g/dl (33.0-37.0); MEAN PLATELET VOLUME 8.7 fl (9.6-12.3); MONO # 0.6 10*3/uL (0.1-1.0); MONO % 7.7 % (3.0-9.0); NEUT # 5.6 10*3/uL (2.3-7.9); NEUT % 77.8 % (47.0-73.0); PLATELET COUNT AUTOMATED 221 10*3/uL (130-400); RED BLOOD COUNT 3.46 10*6/uL (4.50-5.90); RED CELL DISTRI WIDTH 16.9 % (0-14.5); WHITE BLOOD COUNT 7.3 10*3/uL (4.8-10.8)
--- NOTE | 2017-09-03 17:36 | NUR ---
1700 PT REFUSES ANY THING FOR PAIN AT THIS TIME. BHANU ARAUJO RN.
[2017-09-03 17:39] LABS: INTERNATIONAL NORM RATIO 2.3 (2.0-3.5)
[2017-09-03 17:46] LABS: ALBUMIN 2.7 gm/dl (3.1-4.5); CREATININE 1.69 mg/dL (0.70-1.30); POTASSIUM 4.3 mmol/L (3.5-5.1); TOTAL PROTEIN 7.1 gm/dL (6.4-8.2)
--- NOTE | 2017-09-03 19:53 | NUR ---
RETURNED FROM XRAY
[2017-09-03 20:04] VITALS: BP 186/81
[2017-09-03 21:00] VITALS: BP 190/68
--- NOTE | 2017-09-03 21:00 | NUR ---
PT. ARRIVED TO UNIT AT THIS TIME FROM THE ED VIA BED. PT. CURRENTLY DENIES SOB, CP, OR PAIN AT THIS TIME. PT. ABDUCTING RT. LEG "FOR COMFORT" PER PT. CALL LIGHT WITHIN REACH, BED IN LOWEST POSITION, WHEELS LOCKED. SEE ADM. ASSESSMENT.
--- NOTE | 2017-09-03 21:00 | NUR ---
PT TRANSPORTED TO [facility] VIA NURSING ASSISNTANT
[2017-09-03] MEDS ORDERED: COUMADIN2 M1 PO (21:23)
[2017-09-03] MEDS ORDERED: COUMADIN3 M1 PO (21:24)
[2017-09-03] MEDS ORDERED: TOPROL XL25 MG PO (21:26)
[2017-09-03] MEDS ORDERED: METFORMIN500 MG PO (21:26)
[2017-09-03] MEDS ORDERED: ASPIRIN81 M1 PO (21:27)
[2017-09-03] MEDS ORDERED: PACERONE200 MG PO (21:27)
[2017-09-03] MEDS ORDERED: IRON325 M1 PO (21:27)
--- NOTE | 2017-09-03 22:15 | NUR ---
CONTACTED DR. SALGADO TO INFORM OF COMPLETED MEDREC AND PT. STATED NOT HAVING IMDUR, TOPROL, OR METFORMIN AT NIGHT FOR TODAY. PER DR. SALGADO, HOLD METFORMIN D/T CURRENT NPO STATUS, CONTINUE TOPROL AND IMDUR ACCORDING TO PTS. MED LIST.
--- NOTE | 2017-09-03 22:30 | NUR ---
CALLED DR. BELL'S ANSWERING SERVICE AT THIS TIME FOR CONSULT. UNABLE TO REACH EMERGENCY SENIOR WEALTH ADVISOR OR LEAVE A MESSAGE AT THIS TIME.
[2017-09-04] VITALS: BP 174/72
[2017-09-04 00:50] VITALS: BP 158/72
--- NOTE | 2017-09-04 03:20 | NUR ---
PT. REQUESTED PAIN MEDICATION FOR RT. HIP PAIN 05/29. RETRIEVED ORDERED MORPHINE TO ADM TO PT. WHEN EXPLAINING TO PT. WHAT MED I WAS GIVING HIM HE STATED THAT HE WAS ALLERGIC TO MORPHINE. THIS WAS NOT DISCUSSED ON ADM, PT. ALLERGIES HAVE BEEN UPDATED. WILL UPDATE IN THE MORNING FOR MED D/C AND PROVIDE DETAILS IN REPORT TO AVOID ANY CHANCE OF MED ADM.
--- NOTE | 2017-09-04 03:26 | NUR ---
PT. C/O PAIN IN RT. HIP 05/29. PT. GIVEN PLOVER, WILL ASSESS FOR EFFECTIVENESS.
--- NOTE | 2017-09-04 04:07 | NUR ---
PT. RE-ASSESSED FOR EFFECTIVENESS OF PAIN MEDICATION. PT. CURRENTLY SLEEPING WITH EASY, REGULAR RESPIRATIONS.
[2017-09-04 04:51] LABS: BASO % 0.7 % (0.0-1.0); EOS # 0.3 10*3/uL (0.0-0.4); EOS % 5.2 % (1.0-4.0); HEMATOCRIT 28.3 % (42.0-52.0); HEMOGLOBIN 8.8 g/dl (14.0-18.0); LYMPH # 0.7 10*3/uL (1.3-4.4); MEAN CELL VOLUME 86.8 fl (80.0-94.0); MEAN CORPUSCULAR HGB CONC 31.1 g/dl (33.0-37.0); MEAN PLATELET VOLUME 8.3 fl (9.6-12.3); MONO # 0.6 10*3/uL (0.1-1.0); MONO % 9.2 % (3.0-9.0); NEUT # 4.5 10*3/uL (2.3-7.9); NEUT % 73.4 % (47.0-73.0); PLATELET COUNT AUTOMATED 174 10*3/uL (130-400); RED BLOOD COUNT 3.26 10*6/uL (4.50-5.90); RED CELL DISTRI WIDTH 16.6 % (0-14.5); WHITE BLOOD COUNT 6.1 10*3/uL (4.8-10.8)
[2017-09-04 05:01] LABS: ACT PARTIAL THROMBO TIME 33.4 SECONDS (20.8-31.5); INTERNATIONAL NORM RATIO 2.3 (2.0-3.5)
[2017-09-04 05:36] LABS: ALBUMIN 2.5 gm/dl (3.1-4.5); CREATININE 1.42 mg/dL (0.70-1.30); FREE T4 1.43 ng/dl (0.76-1.46); MAGNESIUM 1.6 mg/dL (1.5-2.1); PHOSPHOROUS 3.5 mg/dL (2.5-4.9); POTASSIUM 4.3 mmol/L (3.5-5.1); TOTAL PROTEIN 6.3 gm/dL (6.4-8.2)
[2017-09-04 05:41] LABS: THYROID STIM HORMONE (HS) 5.1 uIU/ml (0.358-4.75)
--- NOTE | 2017-09-04 06:40 | NUR ---
SPOKE WITH DR. SALGADO AT THIS TIME IN REGARDS TO PTS. STATED MORPHINE ALLERGY. ACCORDING TO DR. SALGADO I AM OK TO D/C THIS MED.
[2017-09-04 08:00] VITALS: BP 144/94; BP 168/56
--- NOTE | 2017-09-04 08:36 | NUR ---
PHYSICAL THERAPY Pnt admitted s/p fall at home with CAT yielding non-displaced hairline fracture of the superior acetabulum and non-displaced fx of the ischeal tuberosity. Dr Bruce has been consulted. Will await results of ortho consult prior to initiating any therapy services. Rocio Ko, PT
--- NOTE | 2017-09-04 08:45 | NUR ---
SPOKE WITH DR SNYDER TO REPORT THAT I HAD SPOKE WITH PATIENT'S FOR MED CLARIFICATION AND HAD CALLED DR BELL ABOUT CONSULT.
--- NOTE | 2017-09-04 08:57 | NUR ---
DR SNYDER CALLED TO ASK PERMISSION TO GIVE BLOOD PRESSURE PILL WITH SIP FOR BP OF 144/94. DR SNYDER DENIED REQUEST STATING HIS CONCERN FOR HEART RATE OF 64 BEING TO LOW TO GIVE IT. PT CONTINUES TO BE NPO.
[2017-09-04 09:17] LABS: VITAMIN D, 25-HYDROXY 27.1 ng/mL (30-100)
--- NOTE | 2017-09-04 10:01 | NUR ---
PHONE CALL FROM DR CHURCHILL REQUESTING [facility] REC REVIEW AND DR BELL CONSULT TO BE CALLED.
--- NOTE | 2017-09-04 10:11 | NUR ---
DR OJEDA CALLED TO REQUEST OK TO GIVE PAIN MED WITH A SIP OF WATER. HE STATED YES.
--- NOTE | 2017-09-04 10:18 | NUR ---
PRN PAIN MED GIVEN FOR PT REPORT 6/10 RIGHT HIP PAIN WITH MOVEMENT.
--- NOTE | 2017-09-04 11:16 | NUR ---
PRN PAIN MED EFFECTIVE, PT REPORTS HIS PAIN 2/10.
--- NOTE | 2017-09-04 11:26 | NUR ---
MARLEY AGUILERA [id number] Please refer to the physician's history and physical for past medical history, comorbid conditions, and allergies. Diagnosis: FRACTURE ACETABULUM CLOSED HYPERTENSION TYPE II Perry Score: 16,AT RISK WOUND DESCRIPTIONS: Location of the wound: coccyx Type of wound: stage 2 Thickness: Partial Size: 0.3cm x 0.3cm x 0.1cm Tunneling: none Undermining: none Sinus Tract: none Presence of Exudate: Serous Amount: Light Color: Red Odor: None Periwound Skin Appearance: Normal Wound edges: approximated Pain (associated with wound): none at time of assessment How does patient state this happened? pt unsure how this happened Surface the patient is resting on: Isoflex SKIN PREVENTION RECOMMENDATION: 1. Pressure redistribution support surface as appropriate 2. Elevate heels 3. Remove boots/TEDS every shift and reapply 4. Head of bed 30 degrees as tolerated 5. Assess nutrition and hydration 6. Manage moisture 7. Avoid the use of containment devices while in bed 8. Use absorptive products on surfaces limit layers of linens on bed 9. Turn and reposition every 1-2 hours in bed and every 1 hour in chair as tolerated 10. Weight shifts every 15 minutes while up in chair 11. Offloading with pillows or device to keep heels elevated off bed 12. Monitor skin at least every shift 13. Inspect under medical devices twice a day WOUND TREATMENT RECOMMENDATIONS: Wheelchair cushion when OOB Heel raiser pro boots to bilateral feet when in bed. Cleanse coccyx with nss and apply sureprep around wound then hydrogel to wound bed cover with optifoam gentle.
--- NOTE | 2017-09-04 11:30 | NUR ---
Discharge instructions reviewed with patient/family. Patient receptive and verbalizes understanding. Follow-up care arranged. Written instructions given to patient/family. MARIETTA CELAYA
[2017-09-04 12:00] VITALS: BP 148/72
--- NOTE | 2017-09-04 12:24 | NUR ---
Spoke with Dr. Heller regarding wound care recommendations.
--- NOTE | 2017-09-04 13:50 | NUR ---
PHYSICAL THERAPY PAtient evaluated on 4, full evaluation to follow. Continue with PT as per plan of care with fall, TTWB RIGHT LE, fractured acetabulum and ischial tuberosity, max (A) x 2 and acute debiloty precautions. Will require SNF for impaired mobility. Patient is high complexity via chart review, tests and evaluation: 12640. Thank you for this freferral. Clara Hart,PT
--- NOTE | 2017-09-04 14:05 | NUR ---
Occupational Therapy evaluation completed this date on 4 with full eval to follow. Precautions include fall risk, RLE TTWB, [place] [address], IV RUE. Recommend OT per POC and SNF upon d/c to allow return to home at [facility]. Thank you for this referral. Kate Chavez OTR/l
--- NOTE | 2017-09-04 14:20 | NUR ---
PRN PAIN MED GIVEN FOR A 4/10 PAIN IN RIGHT HIP.
--- NOTE | 2017-09-04 14:22 | NUR ---
10:00 AM TOPROL GIVEN FOR A BP 164/67.
--- NOTE | 2017-09-04 15:20 | NUR ---
PRN PAIN MED EFFECTIVE, PT REPORTS RIGHT HIP PAIN 2/10.
[2017-09-04 16:00] VITALS: BP 170/60
[2017-09-04 20:00] VITALS: BP 174/68
--- NOTE | 2017-09-04 20:06 | NUR ---
PATIENT RESTING IN BED. C/O RIGHT HIP PAIN BUT IS DENYING A NEED FOR PAIN MEDICATION AT THIS TIME. HE IS PLEASANT/COOPERATIVE WITH CARE. RESPIRATIONS EASY/REGULAR. ON RA. WHEELS LOCKED, BED IN LOW POSITIONS. CALL LIGHT IN REACH. WILL MONITOR.
--- NOTE | 2017-09-04 23:14 | NUR ---
PATIENT IS REQUESTING HIS 2L 02 NC BE PLACED ON HIM FOR THE NIGHT. RESPIRS EASY/REG. NO SXS OF DISTRESS. WILL MONITOR.
[2017-09-05] VITALS: BP 164/86
--- NOTE | 2017-09-05 02:33 | NUR ---
PATIENT SLEEPING WITH NO SXS OF DISTRESS. 2L O2 NC. RESPIRATIONS EASY/REGULAR. CALL LIGHT IS IN REACH.
[2017-09-05 06:20] LABS: BASO % 0.6 % (0.0-1.0); EOS # 0.6 10*3/uL (0.0-0.4); EOS % 8.8 % (1.0-4.0); HEMATOCRIT 29.3 % (42.0-52.0); HEMOGLOBIN 9.2 g/dl (14.0-18.0); LYMPH # 0.7 10*3/uL (1.3-4.4); LYMPH % 10.7 % (27.0-41.0); MEAN CELL VOLUME 87.7 fl (80.0-94.0); MEAN CORPUSCULAR HGB 27.5 pg (27.0-31.0); MEAN CORPUSCULAR HGB CONC 31.4 g/dl (33.0-37.0); MEAN PLATELET VOLUME 8.5 fl (9.6-12.3); MONO # 0.5 10*3/uL (0.1-1.0); MONO % 8.3 % (3.0-9.0); NEUT # 4.6 10*3/uL (2.3-7.9); PLATELET COUNT AUTOMATED 180 10*3/uL (130-400); RED BLOOD COUNT 3.34 10*6/uL (4.50-5.90); RED CELL DISTRI WIDTH 16.7 % (0-14.5); WHITE BLOOD COUNT 6.5 10*3/uL (4.8-10.8)
--- NOTE | 2017-09-05 06:32 | NUR ---
SLEPT T/O SHIFT WITH NO COMPLAINTS. RESPIRATIONS EASY/REGULAR ON 2L NC. NO SXS OF DISTRESS. CALL LIGHT IN REACH.
[2017-09-05 06:44] LABS: ALBUMIN 2.5 gm/dl (3.1-4.5); ALKALINE PHOSPHATASE 146 U/L (45-117); BUN 15 mg/dl (7-24); CHLORIDE 102 mmol/L (98-107); MAGNESIUM 1.5 mg/dL (1.5-2.1); POTASSIUM 3.9 mmol/L (3.5-5.1); SGOT/AST 12 IU/L (3-35); SGPT/ALT 16 U/L (12-78); SODIUM 140 mmol/L (136-145); TOTAL PROTEIN 6.3 gm/dL (6.4-8.2)
[2017-09-05 06:59] LABS: INTERNATIONAL NORM RATIO 2.2 (2.0-3.5)
[2017-09-05 08:00] VITALS: BP 148/66
--- NOTE | 2017-09-05 08:00 | NUR ---
PATIENT RESTING IN BED. VOICES NO COMPLAINTS AT THIS TIME. BED IN LOW POSITION. CALL LIGHT WITHIN REACH.
--- NOTE | 2017-09-05 08:44 | NUR ---
Dr. Salgado aware of wound care recommendation for heel raiser pro boots and orders obtained.
--- NOTE | 2017-09-05 08:47 | NUR ---
Shift chart check completed.
--- NOTE | 2017-09-05 09:02 | NUR ---
PHYSICAL THERAPY Pt having nursing in this first AM therapy visit. FAIZA MARC COLD WORK OPERATOR.
--- NOTE | 2017-09-05 10:04 | NUR ---
NORCO 5/325 GIVEN FOR BACK PAIN AND RIGHT HIP PAIN RATING A 5/10.
--- NOTE | 2017-09-05 10:13 | NUR ---
PHYSICAL THERAPY Back to see Mr Macdonald and he was getting his bath at this time. Stopped back and Pt's nurse with in and going to get Pt's pain med. FAIZA MARC AIRWORTHINESS SAFETY INSPECTOR.
--- NOTE | 2017-09-05 10:21 | NUR ---
financial planner will referral patient to [facility] for short term residential,, patient will need a three night stay to qualify for SNF
--- NOTE | 2017-09-05 10:32 | NUR ---
Recieved order for snf placement and request for referral to [facility]. Contacted Cecilia, faxed referral, completed hospital exemption online in [employer] system. Will require a 3 night stay, waiting on acceptance.
--- NOTE | 2017-09-05 10:57 | NUR ---
PHYSICAL THERAPY Back to treat Mr Macdonald, and OT present to help. Transfer supine/sit MOD A X 2, sitting balance once up CGA X 1. Sit/stand and up on wheeled walker standing balance with NWB left LE, verbal cues for this and did well. Followed by slow pivot and inspecting machine adjuster front of his bedside chair with NWB left and stand to tolerance with MAX A X 2, then sit MOD A X 2. Pt with his call light, tray in frone and his aid present to make his bed. FAIZA MARC ASSEMBLER UTILITY BUILDINGS.
--- NOTE | 2017-09-05 11:00 | NUR ---
PATIENT RESTING COMFORTABLY. NO SIGNS OF PAIN. NORCO EFFECTIVE.
[2017-09-05 12:00] VITALS: BP 142/67
--- NOTE | 2017-09-05 12:55 | NUR ---
PATIENT SEEN FOR 25 MINUTES THIS DATE.PATIENT IDENTIFIED BY NAME AND DATE OF THIS DATE. PATIENT IN BED UPON ARRIVAL THIS DATE. COMPLETED SUPINE TO SIT EOB MAX A WITH INCREASE TIME AND MOD VERBAL CUES TECHNIQUE/FORM. PATIENT COMPLETED SIT BALANCE EOB MIN A BRUSH TEETH MIN A WITH DECREASE FMC OBSERVED. PATIENT COMPLETED SIT TO SUPINE MAX A WITH INCREASE TIME REQUIRED. PATIENT'S BREAKFAST ARRIVED. COMPLETED SUPINE TO SIT MAX A WITH MOD VERBAL CUES AND INCREASE TIME. PATIENT COMPLETED SPT MOD A X 2 WITH FWW AND SIMPLE ONE STEP COMMANDS REQUIRED TECHNIQUE/ FORM AND SAFETY. PATIENT FEARFUL OF FALLING WITH EDUCAITON REQUIRED TO COMPLETE. PATIENT SEATED IN RECLINER WITH TRAY UPON EXITING ROOM. STACEY FARAH
--- NOTE | 2017-09-05 13:18 | NUR ---
PHYSICAL THERAPY Back this PM to see MR Macdonald, Pt up in his bedside chair. With verbal cueing for transfer up and to lean forward. Sit/stand MAX A X 2, standing balance with W/W MOD A X 2, and is NWB left LE, pivot onto his bedside commode, followed by transfer back into bed supine, call light, present MOD A X 1. FAIZA MARC PROP SAWYER.
--- NOTE | 2017-09-05 13:56 | NUR ---
[facility] has accepted this patient; Medicare requires a 3 night stay, patient can go tomorrow 09/06/17 if medically stable for discharge.
[2017-09-05 16:00] VITALS: BP 175/54
--- NOTE | 2017-09-05 17:32 | NUR ---
PATIENT IS REFUSING TO TAKE PAIN MEDICATION. NOTIFIED CLIFF URBAN OF PATIENT'S BLOOD PRESSURE. NO NEW ORDERS RECEIVED.
--- NOTE | 2017-09-05 19:00 | NUR ---
NORCO 5/325 GIVEN FOR RIGHT HIP PAIN.
[2017-09-05 20:00] VITALS: BP 154/84
--- NOTE | 2017-09-05 22:52 | NUR ---
PT RESTING QUIETLY IN BED. NO FURTHER S/S OF DISTRESS NOTED. PAIN MED EFFECTIVE.
[2017-09-06] VITALS: BP 164/63
--- NOTE | 2017-09-06 06:31 | NUR ---
PT AWAKE IN BED WATCHING TV. DENIES ANY C/O PAIN/DISCOMFORT. CALL LIGHT IN REACH.
[2017-09-06 08:00] VITALS: BP 150/70
--- NOTE | 2017-09-06 08:00 | NUR ---
PATIENT RESTING IN BED. VOICES NO COMPLAINTS AT THIS TIME. BED IS IN LOW POSITION. CALL LIGHT WITHIN REACH. HEEL PROTECTORS ON.
[2017-09-06 10:14] LABS: INTERNATIONAL NORM RATIO 2.5 (2.0-3.5)
--- NOTE | 2017-09-06 11:01 | NUR ---
PHYSICAL THERAPY Kvng seen this AM 1:1 for his physical therapy session and improving but slow. Transfer supine/sit MOD A X 1, up working on sitting balance side of his bed X 6 min. Sit/stand and standing balance MOD A X 1, followed by pivot onto bedside commode MOD A X 1, aid into help. FAIZA MARC COMPUTER SCIENTIST.
--- NOTE | 2017-09-06 11:53 | NUR ---
Patient is being discharged to [facility], transportation scheduled for 1:30 with [facility]. NH, nursing and family notified.
--- NOTE | 2017-09-06 11:58 | NUR ---
NURSE TO NURSE REPORT GIVEN TO [facility]. ALL QUESTIONS WERE ANSWERED.
--- NOTE | 2017-09-06 12:21 | NUR ---
PHYSICAL THERAPY CO-SIGN I approve of the Phyical Therapy notes written above. SANTOS VALENTIN PT
--- NOTE | 2017-09-06 12:28 | NUR ---
NORCO 5/325 GIVEN FOR RIGHT HIP PAIN.
--- NOTE | 2017-09-06 13:35 | NUR ---
Discharge instructions reviewed with patient/family. Patient receptive and verbalizes understanding. Follow-up care arranged. Written instructions given to patient/family. [facility] REMOVED INTACT. HEART MONITOR REMOVED. ALL QUESTIONS ANSWERED. PATIENT WAS DISCHARGED TO [facility]. [facility]
== END 2017-09-06 13:35 | disposition other institution (70) | DRG 535 ==
LOC: ED 16:55 → 4E 20:11 → EDHOLD 20:11 → 4E 20:28
PROVIDERS: Emergency Medicine; Hospitalist; Registered Nurse; ADMIT Internal Medicine
DX: S32.401A Unspecified fracture of right acetabulum, initial encounter for closed fracture (principal); E43 Unspecified severe protein-calorie malnutrition; D72.1 Eosinophilia; E11.22 Type 2 diabetes mellitus with diabetic chronic kidney disease; E11.51 Type 2 diabetes mellitus with diabetic peripheral angiopathy without gangrene; I13.0 Hypertensive heart and chronic kidney disease with heart failure and stage 1 through stage 4 chronic kidney disease, or unspecified chronic kidney disease; I50.9 Heart failure, unspecified; E11.65 Type 2 diabetes mellitus with hyperglycemia; S32.601A Unspecified fracture of right ischium, initial encounter for closed fracture; I48.0 Paroxysmal atrial fibrillation; N18.3 Chronic kidney disease, stage 3 (moderate); E55.9 Vitamin D deficiency, unspecified; D72.9 Disorder of white blood cells, unspecified; I25.10 Atherosclerotic heart disease of native coronary artery without angina pectoris; K21.9 Gastro-esophageal reflux disease without esophagitis; K44.9 Diaphragmatic hernia without obstruction or gangrene; D64.9 Anemia, unspecified; R79.1 Abnormal coagulation profile; T45.515A Adverse effect of anticoagulants, initial encounter; K27.9 Peptic ulcer, site unspecified, unspecified as acute or chronic, without hemorrhage or perforation; E78.5 Hyperlipidemia, unspecified; F32.9 Major depressive disorder, single episode, unspecified; M10.9 Gout, unspecified; E78.00 Pure hypercholesterolemia, unspecified; Z86.73 Personal history of transient ischemic attack (TIA), and cerebral infarction without residual deficits; Z91.81 History of falling; Z79.01 Long term (current) use of anticoagulants; Z88.5 Allergy status to narcotic agent; Z88.6 Allergy status to analgesic agent; Z91.041 Radiographic dye allergy status; Z98.61 Coronary angioplasty status; Z98.62 Peripheral vascular angioplasty status; Z98.42 Cataract extraction status, left eye; Z98.41 Cataract extraction status, right eye; Z87.891 Personal history of nicotine dependence; Z90.49 Acquired absence of other specified parts of digestive tract; Z83.3 Family history of diabetes mellitus; Z80.0 Family history of malignant neoplasm of digestive organs; Z79.82 Long term (current) use of aspirin; Z79.84 Long term (current) use of oral hypoglycemic drugs; Z79.899 Other long term (current) drug therapy; Z99.81 Dependence on supplemental oxygen; W18.39XA Other fall on same level, initial encounter; Y93.89 Activity, other specified; Y92.098 Other place in other non-institutional residence as the place of occurrence of the external cause; Y99.8 Other external cause status; Z68.27 Body mass index [BMI] 27.0-27.9, adult

== ENCOUNTER → 2017-09-28 | Outpatient (CLI) | payer MEDICARE ==
[~2017-09-28] MED LIST changes: +ASPIRIN81 M1 PO; +COUMADIN2 M1 PO; +IRON325 M1 PO; +PACERONE200 MG PO; +TOPROL XL25 MG PO
== END | disposition home or self-care (01) ==
LOC: ORTHO 02:31
DX: S32.491D Other specified fracture of right acetabulum, subsequent encounter for fracture with routine healing (principal); M16.11 Unilateral primary osteoarthritis, right hip; X58.XXXD Exposure to other specified factors, subsequent encounter

== ENCOUNTER 2018-01-03 14:27 | Emergency (ER) | payer MEDICARE ==
[~2018-01-03] VITALS: Ht 180.3 cm; Wt 93.4 kg
[2018-01-03 15:25] LABS: BASO % 0.4 % (0.0-1.0); EOS # 0.1 10*3/uL (0.0-0.4); EOS % 1.9 % (1.0-4.0); HEMOGLOBIN 9.2 g/dl (14.0-18.0); LYMPH # 0.6 10*3/uL (1.3-4.4); LYMPH % 10.6 % (27.0-41.0); MEAN CELL VOLUME 89.8 fl (80.0-94.0); MEAN CORPUSCULAR HGB 27.5 pg (27.0-31.0); MEAN CORPUSCULAR HGB CONC 30.7 g/dl (33.0-37.0); MEAN PLATELET VOLUME 8.7 fl (9.6-12.3); MONO # 0.4 10*3/uL (0.1-1.0); MONO % 7.4 % (3.0-9.0); NEUT # 4.5 10*3/uL (2.3-7.9); NEUT % 78.8 % (47.0-73.0); PLATELET COUNT AUTOMATED 158 10*3/uL (130-400); RED BLOOD COUNT 3.34 10*6/uL (4.50-5.90); RED CELL DISTRI WIDTH 15.3 % (0-14.5); WHITE BLOOD COUNT 5.7 10*3/uL (4.8-10.8)
[2018-01-03 15:33] LABS: ACT PARTIAL THROMBO TIME 31.9 SECONDS (20.8-31.5); INTERNATIONAL NORM RATIO 2.6 (2.0-3.5)
[2018-01-03 15:35] LABS: CREATININE 1.61 mg/dL (0.70-1.30); POTASSIUM 4.3 mmol/L (3.5-5.1)
== END 2018-01-03 16:22 | disposition short-term general hospital (02) ==
LOC: ED 14:27
PROVIDERS: Emergency Medicine
DX: S06.5X0A Traumatic subdural hemorrhage without loss of consciousness, initial encounter (principal); S70.02XA Contusion of left hip, initial encounter; I25.10 Atherosclerotic heart disease of native coronary artery without angina pectoris; K21.9 Gastro-esophageal reflux disease without esophagitis; E11.22 Type 2 diabetes mellitus with diabetic chronic kidney disease; N18.9 Chronic kidney disease, unspecified; I50.9 Heart failure, unspecified; I48.91 Unspecified atrial fibrillation; E78.00 Pure hypercholesterolemia, unspecified; M10.9 Gout, unspecified; Z86.73 Personal history of transient ischemic attack (TIA), and cerebral infarction without residual deficits; Z91.041 Radiographic dye allergy status; Z88.6 Allergy status to analgesic agent; Z88.8 Allergy status to other drugs, medicaments and biological substances; Z79.899 Other long term (current) drug therapy; Z79.02 Long term (current) use of antithrombotics/antiplatelets; Z79.82 Long term (current) use of aspirin; Z87.891 Personal history of nicotine dependence; W07.XXXA Fall from chair, initial encounter; Y93.89 Activity, other specified; Y92.098 Other place in other non-institutional residence as the place of occurrence of the external cause; Y99.8 Other external cause status